=== PATIENT | female | born 1980 | race Caucasian/White ===

== ENCOUNTER 2017-08-02 | Inpatient (IN) | payer OTHER ==
[2017-08-02] MEDS ORDERED: DEXTROSE 5%-LACTATED RINGERS 1,000 ML IV SCH (01:00)
[2017-08-02] MEDS ORDERED: AMPICILLIN - 2 GM in SODIUM CHLORIDE 100 ML IVPB ONE (01:08)
--- NOTE | 2017-08-02 01:08 | HP ---
Past Medical History - Primary Care Physician PCP:: Kya Fan - Admission Chief Complaint: 36 yrs ( AMA) ,G10, P8109, previousc/sx2, followed by , drop in , came by ambulence c/o Prom since 11.30 PM 08/01/17, onset Of irregular UC since 11.00 PM 08/01/17. EDC ? 08/13/17 38.3 weeks gestation History of Present Illness: PNC in [place] . pt has not seen provider for last 2 months . patient intially stated edc as 09/12/17 that will make her 34.2 weeks but she later states , she made a mistake her edc is 08/13/17 . that is 34.2 weeks she states she had ultrasound , single fetus. Blood glucose test (GTT) negative as per patient declines any infections , or complications meds pnv daily . records not brought, not assessable History Source: Patient Limitations to Obtaining History: No Limitations - Past Medical History DRAGGER: No: Migraine, Seizure Cardiovascular: No: HTN, Murmur Pulmonary: Yes: Asthma Gastrointestinal: Yes: Hemorrhoids. No: Gastritis Hepatobiliary: Yes: Cholelithiasis (lap choly done) Renal/: No: UTI ...: 10 ...Para: 9 (6NSVD, 2c/sections, 1 (home del)LD 01/17/2016 ) ...Term: 8 ...: 1 ([birth year] 34 weeks , 2'11", ? placenta insufficiency, infant 1 month in hosp ) ...LMP: 11/05/16 (not sure ) ... Weeks Gestation by Dates: 38.3 (lmp unknown ) ...EDC by Dates: 08/13/17 (not sure ) ...EDC by Sono: 08/13/17 (by pt statement ) Additional OB History: G1 02/27/1997 , [address] insuffiecency ,2'11"( 1mo NICU) [facility]. G2 06/15/1999 Term [facility]. G3 05/01/2003 term [facility]. G4 04/04/2007 Term [facility]. G5 09/02/2010 Term [facility]. G6 10/28/2010 Term [facility]. G7 03/06/2013 Primary c/section term non reassuring FHR [facility]. G8 02/22/14 Repeat c/section [facility] G9 01/17/2016 ( Home delivery) Term ---[place]. [place] infant weight delivered vaginally 7 lbs . average wt of babies bet ween 5 & 6 lbs . no complications Heme/Onc: Yes: Anemia Infectious Disease: Yes: Other (denies any infections) Psych: Yes: Other (denies mental illhealth) Endocrine: No: Diabetes Mellitus, Hypothyroidism - Past Surgical History Past Surgical History: Yes: Cholecystectomy (07/2016 at [facility]), C- Section (03/06/13 Primary C/S [facility] 02/22/14 Repeat C/section) Hx Myomectomy: No Hx Transabdominal Cerclage: No - Smoking History Smoking history: Never smoked - Alcohol/Substance Use Hx Alcohol Use: No History of Substance Use: reports: None Home Medications - Allergies Allergies/Adverse Reactions: Allergies Allergy/AdvReac Type Severity Reaction Status Date / Time ibuprofen Allergy Intermediate Itching Verified 08/02/17 00:45 - Home Medications Home Medications: Ambulatory Orders Albuterol Sulfate Inhaler - 1 - 2 puff PO PRN PRN 08/02/17 Tablet 1 tablet PO DAILY 08/02/17 Physical Exam - Maternity Vital Signs: Selected Entries 08/02/17 00:00 Temperature 97.9 F Pulse Rate 89 Blood Pressure 124/74 Weight 180 lb Constitutional: Yes: Mild Distress, Obese Eyes: Yes: WNL HENT: Yes: WNL, Normocephalic Neck: Yes: WNL Cardiovascular: Yes: WNL, Regular Rate and Rhythm Lungs: Clear to auscultation Breast(s): Yes: WNL - Abdominal Exam/OB Fundal Height: 34 Number of Fetuses: Single Presentation: Vertex Contractions: Yes Regularity: Irregular Intensity: Mild/Mod Monitor Mode: External Heart Rate (range): 120-130 Category: I Accelerations: Uniform (loss of contact) - Vaginal Exam/OB Vaginal Bleediing: No Speculum Exam: Yes (gross leaking , odor ) Dilatation (cm): 3 Effacement (%): 80 Amniotic Membrane Status: Ruptured Nitrazine Test: Positive Amniotic Fluid: Yes: Clear Presentation: Vertex/Position Station: -2 - Physical Exam Musculoskeletal: Yes: WNL Extremities: Yes: WNL. No: Calf Tenderness Edema: Yes Edema: LLE: 1+, RLE: 1+ Integumentary: Yes: Incision (pfannesteil scar) Deep Tendon Reflex Grade: Normal +2 ...Motor Strength: WNL Psychiatric: Yes: WNL, Alert, Oriented - Labs Lab Results: Laboratory Tests 08/02/17 00:55 WBC 18.8 H Hgb 11.4 Hct 33.4 MCV 82.9 Plt Count 172 Neutrophils % 86.5 H Lymphocytes % 7.8 L Monocytes % 5.0 Eosinophils % 0.3 Basophils % 0.4 Laboratory Tests 08/02/17 08/02/17 08/02/17 00:55 00:55 00:55 PT with INR 11.00 INR 0.97 PTT (Actin FS) 21.4 L Sodium 138 Potassium 3.8 Chloride 105 Carbon Dioxide 22 Anion Gap 11 BUN 7 Creatinine 0.4 L Random Glucose 77 AST 16 ALT 19 Urine Protein Urine Ketones Opiates Screen Methadone Screen Barbiturate Screen Phencyclidine Screen Ur Amphetamines Screen MDMA (Ecstasy) Screen Benzodiazepines Screen Cocaine Screen U Marijuana (THC) Screen HIV 1&2 Antibody Screen Negative HIV P24 Antigen Negative Blood Type Antibody Screen 08/02/17 08/02/17 08/02/17 00:55 02:35 02:35 PT with INR INR PTT (Actin FS) Sodium Potassium Chloride Carbon Dioxide Anion Gap BUN Creatinine Random Glucose AST ALT Urine Protein Negative Urine Ketones Trace H Opiates Screen Negative Methadone Screen Negative Barbiturate Screen Negative Phencyclidine Screen Negative Ur Amphetamines Screen Negative MDMA (Ecstasy) Screen Negative Benzodiazepines Screen Negative Cocaine Screen Negative U Marijuana (THC) Screen Negative HIV 1&2 Antibody Screen HIV P24 Antigen Blood Type A POSITIVE Antibody Screen Negative Hemorrhage Risk Assessment - Risk Factors Risk Score: 1 Risk Level: Medium Risk Problem List - Problems (1) SROM (spontaneous rupture of membranes) Code(s): MSK7442 - (2) AMA (advanced maternal age) multigravida 35+ Code(s): O09.529 - SUPERVISION OF ELDERLY MULTIGRAVIDA, UNSPECIFIED TRIMESTER (3) Grand multipara in labor in third trimester Code(s): O09.43 - SUPRVSN OF W GRAND MULTIPARITY, THIRD TRIMESTER (4) Labor established Code(s): WHF0632 - (5) with care elsewhere Code(s): Z34.90 - ENCNTR FOR SUPRVSN OF NORMAL , UNSP, UNSP TRIMESTER (6) Previous section Code(s): Z98.891 - HISTORY OF UTERINE SCAR FROM PREVIOUS SURGERY (7) 35 weeks gestation of Code(s): Z3A.35 - 35 WEEKS GESTATION OF Assessment/Plan 36 yrs (AMA), approx 35 weeks, Previous c/sx2 followed by Grand Multipara , ( ) , ? care in [place] Plan GBS prophylaxis trial , r/b/a explained , not ltd to rupture ut ,hemorrhage, distress Bed side US was done , prelimnary report SLIUP, cephalic presentation, AGA 35.5 weeks , MARCO 3.98, MVP 1.09 , EFW 6lbs patient changed her mind about , she requests for repeat c/section, does not want to take risk 2.00 AM repeat exam same as above Plan delivery by Repeat c/section
[2017-08-02 01:18] LABS: BASO % 0.4 % (0-2.0); EOS % 0.3 % (0-4.5); HEMATOCRIT 33.4 % (32.4-45.2); HEMOGLOBIN 11.4 GM/dL (10.7-15.3); LYMPH % 7.8 % (8-40); MCH 28.3 pg (25.7-33.7); MCHC 34.1 g/dl (32.0-36.0); MEAN CELL VOLUME 82.9 fl (80-96); MEAN PLT VOLUME 10.9 fl (7.5-11.1); NEUT % 86.5 % (42.8-82.8); PLATELET COUNT 172 K/MM3 (134-434); RBC 4.02 M/mm3 (3.60-5.2); RDW 13.6 % (11.6-15.6); WHITE BLOOD COUNT 18.8 K/mm3 (4.0-10.0)
[2017-08-02 01:29] VITALS: BMI 29.9
[2017-08-02 01:33] LABS: INR 0.97 (0.82-1.09)
[2017-08-02 01:35] LABS: ACTIVATED PTT 21.4 SECONDS (26.9-34.4)
[2017-08-02 01:43] LABS: ALBUMIN 2.7 g/dl (3.4-5.0); ALK PHOS 214 U/L (45-117); ANION GAP 11 (8-16); BILIRUBIN,TOTAL 0.4 mg/dL (0.2-1.0); BLOOD UREA NITROGEN 7 mg/dL (7-18); CALCIUM 8.1 mg/dL (8.5-10.1); CHLORIDE 105 mmol/L (98-107); CO2 22 mmol/L (21-32); CREATININE 0.4 mg/dL (0.55-1.02); GLUCOSE,RANDOM 77 mg/dL (74-106); POTASSIUM 3.8 mmol/L (3.5-5.1); SGOT/AST 16 U/L (15-37); SGPT/ALT 19 U/L (12-78); SODIUM 138 mmol/L (136-145); TOT PROT 6.5 g/dl (6.4-8.2)
[2017-08-02] MEDS ORDERED: CITRIC ACID/SODIUM CITRATE 30 ML UNIT-DOSE CUP PO ONE (02:01)
[2017-08-02] MEDS ORDERED: ELECTROLYTE-148 SOLN 500 ML IV ONE (02:01)
[2017-08-02] MEDS ORDERED: ELECTROLYTE-148 SOLN 1,000 ML IV SCH (02:15)
[2017-08-02 02:45] LABS: URINE APPEARANCE CLEAR; URINE BILIRUBIN NEGATIVE (<2.0 mg/dL); URINE BLOOD NEGATIVE (NEGATIVE); URINE COLOR YELLOW; URINE GLUCOSE (UA) NEGATIVE (NEGATIVE); URINE KETONE TRACE (NEGATIVE); URINE LEUK ESTERASE NEGATIVE (NEGATIVE); URINE NITRITE NEGATIVE (NEGATIVE); URINE PROTEIN NEGATIVE (NEGATIVE); URINE UROBILINOGEN 4.0 E.U/dl mg/dL (0.2-1.0)
[2017-08-02 03:01] LABS: URINE AMPHETAMINES NEGATIVE ng/ml (CUTOFF=500)
[2017-08-02 03:02] LABS: COCAINE, UR NEGATIVE ng/ml (CUTOFF=300); METHADONE, UR NEGATIVE ng/ml (CUTOFF=300); OPIATES, URI NEGATIVE ng/ml (CUTOFF=300); PHENCYCLIDINE,URINE NEGATIVE ng/ml (CUTOFF=25); URINE BARBITURATES NEGATIVE ng/ml (CUTOFF=200); URINE BENZODIAZEPINES NEGATIVE ng/ml (CUTOFF=200)
[2017-08-02] MEDS ORDERED: TUBERCULIN PPD 5 TU/0.1ML SYRINGE (IN PATIENT USE ONLY) ID ONE (03:30)
[2017-08-02] MEDS ORDERED: OXYTOCIN 20 UNITS in 0.9% NS 20 UNIT/1,000 ML INFUS.BAG IV ONE ×2 (03:36→05:22)
[2017-08-02] MEDS ORDERED: morphine SULFATE/Preservative Free 0.5 MG/ML (1cc Syringe) ONE (03:47)
[2017-08-02] MEDS ORDERED: BUPIVACAINE 0.75% IN DEXTROSE/PF 2ML AMPULE NR ONE (04:02)
[2017-08-02] MEDS ORDERED: ONDANSETRON 4 MG/2 ML VIAL IVPUSH PRN (04:31)
[2017-08-02] MEDS ORDERED: morphine SULFATE/Preservative Free 0.5 MG/ML (1cc Syringe) SPIN ONE (04:31)
[2017-08-02] MEDS ORDERED: AMPICILLIN - 1 GM in SODIUM CHLORIDE 100 ML IVPB SCH (05:08)
[2017-08-02] MEDS ORDERED: METHYLERGONOVINE MALEATE 0.2 MG/1 ML AMP IM PRN (05:47)
[2017-08-02] MEDS ORDERED: SENNOSIDES/DOCUSATE COMBO (SENNA PLUS) TABLET (UD) PO PRN (05:47)
[2017-08-02] MEDS ORDERED: OXYTOCIN 20 UNITS in 0.9% NS 20 UNIT/1,000 ML INFUS.BAG IV SCH (06:00)
--- NOTE | 2017-08-02 06:03 | OP ---
Operative Note - Note: Operative Date: 08/02/17 Pre-Operative Diagnosis: 35 weeks , previous c/sx2, Prom ,in labor, grand multipara Operation: Repeat LFTC/section Findings: Time of 4.22 AM, 9/9, wt 5'7" ,Ht 17: both tubes & ovaries normal Dr Andres handle assembler present in the room Surgeon: Kya Fan Numerical Tool Programmer: Chris Valente Anesthesiologist/ROUTING EQUIPMENT TENDER: George Horne Anesthesia: Spinal Specimens Removed: cord blood segment for blood gas. cord blood. placenta Estimated Blood Loss (mls): 600 Drains, Volume Out (mls): 300 (stone color ) Fluid Volume Replaced (mls): 1,000 (2 gm iv ancef prior to incision )
[2017-08-02 06:04] LABS: ARTERIAL BLOOD GAS BASE EXCESS -4.7 meq/l (-2-2); ARTERIAL BLOOD GAS PCO2 55.6 mmHg (35-45)
[2017-08-02 06:17] LABS: ARTERIAL BLOOD GAS pH 7.24 (7.35-7.45)
[2017-08-02 06:18] LABS: ARTERIAL BLD GAS O2 SATURATION 37.7 % (90-98.9); ARTERIAL BLOOD GAS PO2 23.6 mmHg (80-100)
--- NOTE | 2017-08-02 06:18 | PN ---
Delivery - Delivery Section: Repeat, Low Flap Transverse (Indication 36 weeks, previous c/ sx2, PROM, in labor , grand multipara) Type of Anesthesia: Spinal EBL (cc): 600 (intraop urine out put 300 ml stone color ) Delivery, Single - Stages of Labor Date of Delivery: 08/02/17 Time of Delivery: 04:22 Date Placenta Delivered: 08/02/17 Time Placenta Delivered: 04:23 Placenta: Yes: Manual Removal, Uterine Exploration - Condition of Infant Neuropsychiatrist/Inspector Sheet Metal Parts Present: Yes Name: Michael Andres Gender: Male Weight: 5 lb 7 oz Position: OA Total Hours ROM (Hrs/Mins): 5hrs 22 min - 1 Minute Total Score: 9 5 Minutes Total Score: 9 Remarks - Remarks Remarks: 36 yrs ( AMA), ) , 35 weeks approx, PROM , in labor ,Previous c/ section Gbs unknown,? care in [place] rx 2 gm Iv Ampicillin given, pt refused to continue trial of , requested repeat c/section Urine drug tox neg . WBC 18.8, neutro 86.5 2 gm Iv Ancef given prior to incision . Intraop course uneventful.Severe Oligo noted Plan post Op v/s Temp 99.3, BP 100/52, Pulse 65/min
[2017-08-02 06:20] LABS: VENOUS PC02 48.3 mmHg (38-52); VENOUS PH 7.34 (7.32-7.42); VENOUS PO2 28.2 mmHg (28-48)
[2017-08-02] MEDS ORDERED: ACETAMINOPHEN INJECTION 100 ML IVPB ONE ×3 (07:40→20:07)
[2017-08-02] MEDS: ACETAMINOPHEN 1000 MG/100 ML VIAL (NON FORMULARY) IVPB PRN ×3 (07:40→20:22)
[2017-08-02] MEDS ORDERED: FERROUS SO4 325 MG TABLET (FP) PO SCH (08:00)
--- NOTE | 2017-08-02 08:12 | OP ---
DATE OF OPERATION: 08/02/2017 PREOPERATIVE DIAGNOSIS: , 35 weeks, premature rupture of membrane, previous sections x2. Patient in labor and care elsewhere. SURGEON: Kya Fan MD YACHT BUILDER SURGEON: REMINGTON Levin ANESTHESIOLOGIST: George Horne MD FINDINGS: This is a 36-year-old, 6, para 8-1-0-9. Has a previous C- section followed by , and patient had rupture of membranes since 11:30 p.m. on August 01, and she was in labor, altaf irregularly. She was 3 cm dilated, 90% effaced. Patient refused to continue trial, so she was taken for a . PROCEDURE: Abdomen was shaved, prepped. Johnson catheter was placed. Patient was taken to the operating room table, and spinal anesthesia was given. Abdomen was painted and draped in usual manner. Pfannenstiel incision was made through previous incision. The skin and subcutaneous tissue, anterior rectus sheath were incised transversely. Bleeding points we clamped and cauterized. Then the rectus muscle was not really identified as soon as the rectus sheath was opened, and suprapubically the bladder was seen bulging out. The bilateral peritoneum then was opened vertically and rectus sheath was from the parietal peritoneum to get the adequate space for the removal of the baby. Then the bladder peritoneum was identified , and it was incised transversely. Bladder was pushed down. Lower uterine segment was incised transversely. Amniotic fluid was very minimal. Baby was delivered from LD position at 4:22 a.m. Baby's was 9, 9. It was a baby boy, and the weight was 5 pounds 7 ounces. Cord was clamped, cut, and cord blood was collected, and prior to that, cord segment was sent for cord blood gases, and placenta was removed completely with the membrane. Then the closure of the uterine cavity was cleaned, and the closure of the uterine incision was done in 2 layers. First layer was a continuous locking with a Biosyn 0 suture, then second layer was closed with a Biosyn 0 suture, then vertical mattress sutures were taken. Sutures were intermittently locked. Hemostasis was checked. The peritoneum was closed with a Biosyn 0 suture. Both tubes and ovaries were normal. Irrigation was done. Sponge, instrument, needle count was correct , and the closure of the abdomen was done. Parietal peritoneum was closed with a 2-0 Biosyn suture, and then the muscles which were were tried to bring together in the center, and they were closed with interrupted suture. Then the hemostasis was checked underneath the rectus sheath, then the rectus sheath was closed. Rectus sheath also was difficult to identify from the thick scar tissue, and the skin was mobilized from the anterior rectus sheath. The rectus sheath was closed with Vicryl 0 continuous suture. Hemostasis was verified in subcutaneous tissue. Some interrupted sutures were approximated. Subcutaneous tissue was also mainly only a scar. Then the skin was approximated with lobo. Pressure dressing was given. Blood clots were removed from the vagina. Patient tolerated procedure well, and she was transferred to the recovery room in stable condition. ESTIMATED BLOOD LOSS: 600 mL. INTRAOPERATIVE URINE OUTPUT: 300 mL. Amelia [id number] MTDD
[2017-08-02] MEDS: CEFAZOLIN 1 GM/D5W 1 GM/50 ML BAG IVPB SCH ×2 (11:29→20:43)
[2017-08-02] MEDS ORDERED: oxyCODONE HCL 5 MG TABLET PO PRN (17:00)
[2017-08-02] MEDS: oxyCODONE HCL 5 MG TABLET PO PRN (21:58)
[2017-08-03] MEDS: ACETAMINOPHEN 325 MG TABLET (FP) PO PRN ×5 (02:10→21:13)
[2017-08-03] MEDS: oxyCODONE HCL 5 MG TABLET PO PRN ×5 (02:10→21:11)
--- NOTE | 2017-08-03 05:39 | PN ---
Post Progress Note - Subjective Subjective: 36 yo Para 10 status post repeat , seen and evaluated. Doing well. Post Day: 1 Type of Delivery: Repeat C/S Vital Signs: Vital Signs Temperature 98.1 F 08/03/17 01:00 Pulse Rate 72 08/03/17 01:00 Respiratory Rate 20 08/03/17 02:00 Blood Pressure 127/70 08/03/17 01:00 O2 Sat by Pulse Oximetry (%) 98 08/02/17 07:00 Breast Exam: Yes: Soft Uterus: Yes: Fundus Firm Incision: Yes: Dressing dry and intact Abdomen/GI: Yes: Abdomen soft, Tolerating PO Lochia: Yes: Rubra Lochia, amount: Moderate Extremities: Yes: Calves non-tender Perineum: Yes: Intact Activity: Ambulating - Labs Labs: CBC WBC 18.8 K/mm3 (4.0-10.0) H 08/02/17 00:55 RBC 4.02 M/mm3 (3.60-5.2) 08/02/17 00:55 Hgb 11.4 GM/dL (10.7-15.3) 08/02/17 00:55 Hct 33.4 % (32.4-45.2) 08/02/17 00:55 MCV 82.9 fl (80-96) 08/02/17 00:55 MCH 28.3 pg (25.7-33.7) 08/02/17 00:55 MCHC 34.1 g/dl (32.0-36.0) 08/02/17 00:55 RDW 13.6 % (11.6-15.6) 08/02/17 00:55 Plt Count 172 K/MM3 (134-434) 08/02/17 00:55 MPV 10.9 fl (7.5-11.1) 08/02/17 00:55 Neutrophils % 86.5 % (42.8-82.8) H 08/02/17 00:55 Lymphocytes % 7.8 % (8-40) L 08/02/17 00:55 Monocytes % 5.0 % (3.8-10.2) 08/02/17 00:55 Eosinophils % 0.3 % (0-4.5) 08/02/17 00:55 Basophils % 0.4 % (0-2.0) 08/02/17 00:55 Problem List - Problems (1) Status post repeat low transverse section Code(s): Z98.891 - HISTORY OF UTERINE SCAR FROM PREVIOUS SURGERY Assessment/Plan Status post repeat Ambulation Analgesia as needed Continue post op care
[2017-08-03] MEDS ORDERED: BISACODYL 10 MG SUPP.RECT RC PRN (05:47)
[2017-08-03 06:10] LABS: HBsAG SCREEN Negative (Negative)
[2017-08-03] MEDS: CEFAZOLIN 1 GM/D5W 1 GM/50 ML BAG IVPB SCH (06:18)
[2017-08-03 08:09] LABS: RUBELLA IgG ANTIBODY 2.17 index (Immune >0.99)
[2017-08-03] MEDS: FERROUS SO4 325 MG TABLET (FP) PO SCH ×3 (08:16→17:04)
[2017-08-03] MEDS: SIMETHICONE 80 MG TAB.CHEW (FP) PO PRN ×3 (08:18→17:01)
--- NOTE | 2017-08-03 08:36 | PN ---
Progress Note (short form) - Note Progress Note: Anesthesia postop note 36 y/o F s/p spinal anesthesia/ duramorph for section POD#1, vss, aaox3, pain well controlled, sensory motor intact distally No anesthesia complications.
[2017-08-03 09:21] LABS: BASO % 0.4 % (0-2.0); EOS % 0.5 % (0-4.5); HEMATOCRIT 29.8 % (32.4-45.2); HEMOGLOBIN 10.2 GM/dL (10.7-15.3); LYMPH % 8.7 % (8-40); MCH 28.5 pg (25.7-33.7); MCHC 34.4 g/dl (32.0-36.0); MEAN CELL VOLUME 82.9 fl (80-96); MEAN PLT VOLUME 10.7 fl (7.5-11.1); MONO % 4.4 % (3.8-10.2); PLATELET COUNT 163 K/MM3 (134-434); RBC 3.59 M/mm3 (3.60-5.2); RDW 13.7 % (11.6-15.6); WHITE BLOOD COUNT 15.1 K/mm3 (4.0-10.0)
[2017-08-03] MEDS: PRENATAL VITAMINS W/ FOLIC ACID TABLET (FP) PO SCH (09:37)
[2017-08-03] MEDS: ENOXAPARIN NA (PORCINE) 40 MG/0.4 ML DISP.SYRIN SQ SCH (09:38)
[2017-08-03] MEDS: diphenhydrAMINE HCL 25 MG CAPSULE (FP) PO PRN (22:27)
[2017-08-03] MEDS ORDERED: ALBUTEROL SO4 18 GM HFA INHALER IH PRN (22:27)
[2017-08-03] MEDS ORDERED: ALBUTEROL SO4 18 GM HFA INHALER IH ONE (22:29)
[2017-08-04] MEDS: ACETAMINOPHEN 325 MG TABLET (FP) PO PRN ×4 (04:06→17:55)
[2017-08-04] MEDS: SIMETHICONE 80 MG TAB.CHEW (FP) PO PRN ×3 (04:06→13:36)
[2017-08-04] MEDS: oxyCODONE HCL 5 MG TABLET PO PRN ×4 (04:06→17:56)
[2017-08-04] MEDS: diphenhydrAMINE HCL 25 MG CAPSULE (FP) PO PRN (04:10)
--- NOTE | 2017-08-04 07:18 | PN ---
Progress Note (short form) - Note Progress Note: pod 2 s/p c/s . has mild gas pain ,ambulating, voids ok CBC, BMP 08/03/17 07:45 08/02/17 00:55 Last Vital Signs Temp Pulse Resp BP Pulse Ox 98.4 F 78 18 130/81 96 08/03/17 21:27 08/03/17 21:27 08/03/17 21:27 08/03/17 21:27 08/03/17 21:00 abdomen soft, no distension, no cva incision dry, clean no calf tenderness plan ambulate. cbc in am
[2017-08-04] MEDS: PRENATAL VITAMINS W/ FOLIC ACID TABLET (FP) PO SCH (09:16)
[2017-08-04] MEDS: FERROUS SO4 325 MG TABLET (FP) PO SCH ×3 (09:16→17:54)
[2017-08-04] MEDS: ENOXAPARIN NA (PORCINE) 40 MG/0.4 ML DISP.SYRIN SQ SCH (09:16)
--- NOTE | 2017-08-04 13:10 | PATH ---
Surgical Pathology Report Patient Name: MC BENÍTEZ Med. Rec. #: [id number] /Age/Gender: 1980 (Age: 36) / F Account: [id number] Location: [facility] OBS/DIGITAL ARTIST Taken: 08/02/2017 Received: 08/02/2017 Reported: 08/04/2017 Physicians: Kya Fan M.D. Specimen(s) Received PLACENTA Clinical History , 35 weeks gestation with PROM, x2 and cholecystectomy 2017 Final Diagnosis PLACENTA, DELIVERY: FOCALLY DISRUPTED THIRD TRIMESTER PLACENTA WITH ACUTE CHORIOAMNIONITIS, AND 3 VESSEL UMBILICAL CORD WITH ACUTE FUNISITIS. Electronically Signed Bal Decker M.D. Gross Description The specimen is received fresh labeled placenta and is a 456 gram, 16 x 15 x 1.5 cm. placenta with attached membranes and umbilical cord. The attached membranes are salazar-jerome translucent and insert marginally. The umbilical cord measures 20 cm. in length and averages 1.2 cm. in diameter. The cord inserts eccentrically, 4 cm. to the nearest margin. No true knots or strictures are identified. Cut surface of the umbilical cord reveals 3 vessels. The surface is cochran-blue with minimal fibrin deposition and appropriate caliber vessels. The maternal surface is red-brown with focal defects. Sectioning reveals red-brown, spongy parenchyma. No lesions are identified. Special Education Superintendent sections are submitted in three cassettes as follows: 1- membrane rolls and umbilical cord; 2-3- full thickness sections of placenta. AMAYA/08/03/2017 elvi/08/03/2017
--- NOTE | 2017-08-04 13:41 | CON.PSY ---
Psychiatry Consult Chief Complaint: I am ok, I am not depressed, never seen a psychiatrist. I know nI made a mistake with Marleen croft my daughter. I am fine. - Previous Psychiatric Treatment Outpatient: None Inpatient: None - Previous Substance Abuse Treatment Outpatient: None Inpatient: None - Current Medications Current Medications: Active Medications Acetaminophen (Tylenol -) 650 mg PO Q4H PRN PRN Reason: PAIN LEVEL 1-5 Last Admin: 08/04/17 09:14 Dose: 650 mg Albuterol Sulfate (Ventolin Hfa Inhaler -) 2 puff IH Q4H PRN PRN Reason: SHORTNESS OF BREATH Last Admin: 08/03/17 22:45 Dose: 2 puff Bisacodyl (Dulcolax Suppository -) 10 mg RC PRN PRN PRN Reason: CONSTIPATION Last Admin: 08/03/17 20:10 Dose: 10 mg Diphenhydramine HCl (Benadryl -) 25 mg PO Q4H PRN PRN Reason: ALLERGY Last Admin: 08/04/17 04:10 Dose: 25 mg Enoxaparin Sodium (Lovenox -) 40 mg SQ DAILY [facility] Last Admin: 08/04/17 09:16 Dose: 40 mg Ferrous Sulfate (Feosol -) 325 mg PO BIDWM [facility] Last Admin: 08/04/17 09:18 Dose: Not Given Methylergonovine Maleate (Methergine Injection -) 0.2 mg IM Q4H PRN PRN Reason: Excessive Bleeding (L&D) Oxycodone HCl (Roxicodone -) 5 mg PO Q4H PRN PRN Reason: PAIN LEVEL 4 - 6 Last Admin: 08/04/17 09:15 Dose: 5 mg Oxycodone HCl (Roxicodone -) 10 mg PO Q4H PRN PRN Reason: PAIN LEVEL 7 - 10 Multivit/Folic Acid/Iron ( Vitamins ([facility]) -) 1 tab PO DAILY [facility] Last Admin: 08/04/17 09:16 Dose: 1 tab Senna/Docusate Sodium (Pericolace -) 2 tablet PO HS PRN PRN Reason: CONSTIPATION Last Admin: 08/03/17 21:11 Dose: 2 tablet Simethicone (Mylicon -) 80 mg PO Q4H PRN PRN Reason: GAS Last Admin: 08/04/17 09:14 Dose: 80 mg - Allergies Allergies: Allergies Allergy/AdvReac Type Severity Reaction Status Date / Time ibuprofen [From Motrin] Allergy Hives and Verified 01/17/16 12:43 vomiting - Current Living Status Usual Living Arrangement: With Significant Other - Current Mental Status Evaluation Appearance: Well Groomed Attitude: Cooperative - Affect Affect: Full Range Appropriateness: Appropriate to Content - Mood Mood: Euthymic - Speech/Language Expressive: Coherent - Psychomotor Activity Psychomotor Activity: Normal - Thought Process Thought Process: Intact - Thought Content Hallucinations: Absent Delusions: Absent - Self Perception Self Perception: No Impairment - Cognition Attention: Alert Orientation: Time Memory, Immediate Recall: Intact Memory, Short Term: 3/3 Memory, Remote with Promptin/3 - Concentration Serial Sevens Intact: Yes Simple Calculations Intact: Yes - Abstraction Proverb Interpretation: Intact Judgement: Intact - Insight Insight: Intact - Impulse Control Impulse Control: Good Control - Suicidal Ideation Suicidal Ideation: No - Homicidal Ideation Homicidal Ideation: No Assessment/Plan 1) No acute psych illness. 2) No psych meds or treatment needed at this time.
[2017-08-04 20:55] VITALS: TEMP 98.1
[2017-08-05] MEDS: ACETAMINOPHEN 325 MG TABLET (FP) PO PRN ×2 (00:23→07:33)
[2017-08-05] MEDS: SIMETHICONE 80 MG TAB.CHEW (FP) PO PRN ×2 (00:23→07:34)
[2017-08-05] MEDS: oxyCODONE HCL 5 MG TABLET PO PRN ×2 (01:31→07:36)
[2017-08-05] MEDS: diphenhydrAMINE HCL 25 MG CAPSULE (FP) PO PRN (01:31)
[2017-08-05] MEDS: FERROUS SO4 325 MG TABLET (FP) PO SCH (07:34)
--- NOTE | 2017-08-05 07:44 | DS ---
Physical Exam-LUBE MAN Vital Signs: Vital Signs Temperature 98.1 F 08/04/17 20:54 Pulse Rate 88 08/04/17 20:54 Respiratory Rate 20 08/04/17 20:54 Blood Pressure 121/75 08/04/17 20:54 O2 Sat by Pulse Oximetry (%) 96 08/03/17 21:00 Constitutional: Yes: Well Nourished, Other (no complains) Eyes: Yes: WNL HENT: Yes: WNL, Normocephalic Neck: Yes: WNL Cardiovascular: Yes: WNL Respiratory: Yes: WNL, CTA Bilaterally Gastrointestinal: Yes: WNL, Normal Bowel Sounds, Soft, Other (bm done). No: Distention Renal/: Yes: WNL, Other (voiding without difficulty) ....Post : Yes: Uterus firm, Uterus non-tender, Moderate lochia rubra Breast(s): Yes: WNL (not BF) Musculoskeletal: Yes: WNL Extremities: Yes: WNL. No: Calf Tenderness Edema: No Integumentary: Yes: Tattoos Wound/Incision: Yes: Clean/Dry, [place] Intact, Open to air Neurological: Yes: WNL, Alert, Oriented ...Motor Strength: WNL Psychiatric: Yes: WNL, Alert, Oriented, Other (psyche consult obtained, clear no meds reqd. pt admitted that she was taking 150 mg of Lyrica daily for past 3 years due to Fibromyalgia ,including during . baby is having withdrawal symptoms in NICU. Urine drug tox negative) Labs: CBC, BMP 08/03/17 07:45 08/02/17 00:55 Microbiology 08/02/17 02:35 Urine - Urine Clean Catch Urine Culture - Final NO GROWTH OBTAINED 08/02/17 00:01 Vaginal Gram Stain - Final 08/02/17 00:01 Vaginal Genital Culture - Final Strep Agalactiae Group B pt was treated with iv ampicillin prior to c/section & during post op with IV Ancef Delivery - Delivery Section: Repeat, Low Flap Transverse (Indication 36 weeks, previous c/ sx2, PROM, in labor , grand multipara) Type of Anesthesia: Spinal Episiotomy/Laceration: None EBL (cc): 600 (intraop urine out put 300 ml stone color ) Delivery, Single - Stages of Labor Date 1st Stage Initiatied: 08/02/17 Time 1st Stage Initiated: 23:00 Date of Delivery: 08/02/17 Time of Delivery: 04:22 Time Placenta Delivered: 04:23 Placenta: Yes: Manual Removal, Uterine Exploration - Condition of Infant Napkin Band Wrapper/Homeopathic Doctor Present: Yes Name: Michael Andres Infant Gender: Male Weight: 5 lb 7 oz Position: OA Total Hours ROM (Hrs/Mins): 5hrs 22 min - 1 Minute Total Score: 9 5 Minutes Total Score: 9 Remarks - Remarks Remarks: 36 yrs ( AMA), ) , 35 weeks approx, PROM , in labor ,Previous c/ section Gbs unknown,? care in [place] rx 2 gm Iv Ampicillin given, pt refused to continue trial of , requested repeat c/section Urine drug tox neg . WBC 18.8, neutro 86.5 2 gm Iv Ancef given prior to incision . Intraop course uneventful.Severe Oligo noted Plan post Op immediate in RR v/s Temp 99.3, BP 100/52, Pulse 65/min. post op course uneventful she will rtc for removal of lobo. anemia counselled discharge 08/05/17 Discharge Summary Reason For Visit: ADMIT LABOR Current Active Problems 35 weeks gestation of (Acute) AMA (advanced maternal age) multigravida 35+ (Acute) Delivery by emergency section (Acute) Grand multipara in labor in third trimester (Acute) Labor established (Acute) with 38 completed weeks gestation (Acute) with care elsewhere (Acute) Previous section (Acute) SROM (spontaneous rupture of membranes) (Acute) Status post repeat low transverse section (Acute) Condition: Stable - Instructions Diet, Activity, Other Instructions: Post Instructions DIET: Continue good diet high in protein, calcium, and iron rich foods. Drink at least eight (8) glasses of water daily in addition to other fluids. ct Regular diet MEDICATIONS: Continue vitamins and iron as previously directed. Motrin and Tylenol may be taken for minor discomfort. ACTIVITY: Mild to moderate exercise may be started in two (2) weeks. Take frequent rest periods. Resume normal activity after six (6) week check up. WOUND CARE OF OPERATIVE SITE: Continue use of perineal bottle until vaginal discharge stops. Keep area clean. Shower daily. Keep abdominal wound dry. Report any drainage or redness to physician. Tub baths, tampons and douches are not permitted for [address] Breast feeding & or Bottle feeding BREAST CARE: (For those that are not breast feeding): If engorgement occurs: Wear tight fitting bra. Take Tylenol or Motrin for pain. Apply cold packs (ice in bags to each breast ) FAMILY PLANNING: There are many control alternatives to pursue and they should be discussed at your first office visit. You may resume sexual activity after your six (6) week check up. (Remember, breast feeding is not a contraceptive) NEXT PHYSICIAN APPOINTMENT: Be certain to call for a one (1) week appointment, unless otherwise directed. rtc Monday for lobo removal Call Clinic or got to Emergency Dept if you have any of the following: Heavy vaginal bleeding Painful urination Leg pain Unusual odor noted to vaginal bleeding High fever Red streaking noted on breast Referrals: Kya Fan MD [Staff Physician] - Disposition: HOME - Home Medications Comprehensive Discharge Medication List: Ambulatory Orders Acetaminophen [Pain Reliever] 500 mg PO TID PRN #25 tablet 10/15/13 Vitamins (Sjr) - 1 tab PO DAILY #30 tablet 01/18/16 Albuterol Sulfate Inhaler - 1 - 2 puff PO PRN PRN 08/02/17 Tablet 1 tablet PO DAILY 08/02/17 Acetaminophen [Tylenol .Regular Strength -] 500 mg PO Q4H PRN #30 tablet Albuterol Sulfate Inhaler - [Ventolin HFA Inhaler -] 2 puff IH Q4H PRN inhaler 08/04/17 Ferrous Sulfate [Feosol] 325 mg PO BIDWM #60 tab 08/04/17 Vitamins (Sjr) - 1 tab PO DAILY #30 tablet 08/04/17
[2017-08-05 07:59] LABS: BASO % 0.5 % (0-2.0); EOS % 3.2 % (0-4.5); HEMATOCRIT 31.7 % (32.4-45.2); HEMOGLOBIN 11.1 GM/dL (10.7-15.3); LYMPH % 14.2 % (8-40); MCH 28.9 pg (25.7-33.7); MEAN CELL VOLUME 82.8 fl (80-96); MEAN PLT VOLUME 9.5 fl (7.5-11.1); MONO % 6.7 % (3.8-10.2); NEUT % 75.4 % (42.8-82.8); PLATELET COUNT 213 K/MM3 (134-434); RBC 3.83 M/mm3 (3.60-5.2); RDW 13.6 % (11.6-15.6); WHITE BLOOD COUNT 10.4 K/mm3 (4.0-10.0)
[2017-08-05 08:35] VITALS: BP 132/80; PULSE 84
== END 2017-08-05 09:20 | disposition home or self-care (01) | DRG 540 ==
LOC: MERGE → JLDR → J3W 08:00
PROVIDERS: ADMIT Obstetrics & Gynecology; ATTEND Obstetrics & Gynecology
PROC: 10D00Z1 Extraction of Products of Conception, Low, Open Approach (ICD-10-PCS; principal; 2017-08-02)
DX: O34.211 Maternal care for low transverse scar from previous cesarean delivery (principal); O42.013 Preterm premature rupture of membranes, onset of labor within 24 hours of rupture, third trimester; O60.23X1 Term delivery with preterm labor, third trimester, fetus 1; Z3A.35 35 weeks gestation of pregnancy; Z37.0 Single live birth
CPT/HCPCS: 36415; 36600; 76801-TC; 76819-TC; 80053; 80307; 81003; 82803; 85025; 85610; 85730; 86593; 86762; 86850; 86900; 86901; 87070; 87086; 87186; 87205; 87340; 87389; 88307-TC; J0131